=== PATIENT | female | born 1955 | race Caucasian/White ===

== ENCOUNTER → 2017-05-04 | Day surgery (SDC) | payer OTHER ==
[2017-03-28 11:09] VITALS: Ht 157.5 cm; Wt 81.8 kg
[~2017-05-04] VITALS: Ht 157.5 cm; Wt 81.8 kg
[~2017-05-04] MED LIST: AMIT25TA9 PO; BIOTCAP2 PO; BUDE32SU3 NAE; CHOL1TAB42 PO; GABA-1220 PO; IOPAMIDOL INJ 61% 15 ML VIAL ONE; LIDOCAINE HCL 1% MPF 5 ML VIAL ONE; NATURE THYROID PO; SODIUM CHLORIDE 0.9% INJ 10 ML VIAL ONE; ZOLP10TA PO
--- NOTE | 2017-05-04 15:14 | History & Physical Bridge - [place] ---
H&P Re-Evaluation Bridge Note: I have examined the patient, reviewed the History & Physical and in the interval since the performance of the History & Physical I have noted the following changes of clinical significance: No changes noted
--- NOTE | 2017-05-04 15:33 | [facility] Post Operative Brief Note ---
Immediate Operative Summary Operative Date May 04, 2017. Pre-Operative Diagnosis L4-5 STENOSIS WITH A LEFT L5 RADICULOPATHY Post-Operative Diagnosis L4-5 STENOSIS WITH A LEFT L5 RADICULOPATHY Procedure(s) Performed LUMBAR EPIDURAL STEROID INJECTION Surgeon DR. Gadiel SPAULDING [employer] Superintendent Surgeon(s) None Estimated Blood Loss NONE Findings Consistent with Post-Op Diagnosis Specimens NA Drains None Anesthesia Type Local Complication(s) none Disposition Disposition:
--- NOTE | 2017-05-04 15:34 | Discharge Instructions ---
Discharge Instructions Date of Service May 04, 2017. Visit Reason for Visit: Lumbar Radiculopathy Discharge Discharge Diagnosis / Problem: left leg pain Discharge Goals Goal(s): Decrease discomfort, Improve function Activity Recommendations Activity Limitations: resume your previous activity Anesthesia . Post Anesthesia Instructions: If you have had General Anesthesia or IV Sedation: * Do not drive today. * Resume driving when surgeon permits. * Do not make important decisions or sign legal documents today. * Call surgeon for: 1. Temperature elevations greater than 101 degrees F. 2. Uncontrollable pain. 3. Excessive bleeding. 4. Persistent nausea and vomiting. 5. Medication intolerance (nausea, vomiting or rash). * For nausea and vomiting use only clear liquids such as: tea, soda, bouillon until nausea subsides, then gradually increase diet as tolerated. * If you have any concerns or questions, call your surgeon's office. If physician is unavailable and it is an emergency, call 911 or go to the nearest emergency room. . Diet Recommendations Recommended Home Diet: resume previous diet Procedures Procedures Performed: LUMBAR EPIDURAL STEROID INJECTION Pending Studies Studies pending at discharge: no Medical Emergencies . Who to Call and When: Medical Emergencies: If at any time you feel your situation is an emergency, please call 911 immediately. . Non-Emergent Contact Non-Emergency issues call your: Specialist . . "Provider Documentation" section prepared by Adolfo Knowles. .
[2017-05-04 15:35] VITALS: TEMP 36.4
[2017-05-04 15:58] VITALS: BP 122/84; PULSE 71; O2SAT 98
--- NOTE | 2017-05-04 18:14 | OPERATIVE REPORT ---
DATE OF OPERATION: 05/04/2017 PREOPERATIVE DIAGNOSIS: L4-L5 stenosis with a left L5 radiculopathy. POSTOPERATIVE DIAGNOSIS: Same. PROCEDURE: Left paramedian L5-S1 intralaminar epidural steroid injection under fluoroscopic guidance. INDICATIONS: The patient is a 61-year-old white female who has a 15-year history of recurrent low back pain. She is describing classic radicular symptoms down the left leg following an L5 dermatomal distribution with imaging studies showing multifactorial foraminal stenosis at L4-L5. PHYSICAL EXAMINATION: Pleasant female seated comfortably. She has some mild sciatic notch sensitivity, mild reproduction of pain with forward flexion, no problems with extension. She has negative seated straight leg raises and intact sensation distally. CONSENT: Verbal and written consent was obtained from the patient. Risks and benefits were reviewed. Risks include but are not limited to epidural abscess, epidural hematoma, allergic reaction, dural puncture. The patient wishes to proceed. DESCRIPTION OF PROCEDURE: The patient was taken back to the special procedures room of [facility]. She was maintained in a prone position. Backside was cleansed with Betadine x3 and a dry sterile dressing was applied. Fluoroscope was used to identify the L5-S1 intralaminar space. Overlying skin was anesthetized with 4 mL of lidocaine 1% with a 25 gauge 1.5-inch needle on the left side. A 22-gauge 3-1/2 inch Tuohy needle was then directed down towards the intralaminar space. It was advanced under lateral fluoroscopic guidance and loss of resistance was noted at a depth of 6.5 cm. Isovue 300 contrast 0.5 mL was injected in which demonstrated epidural uptake pattern, which was confirmed with lateral view. She then underwent injection after negative aspiration of 40 mg of Depo-Medrol and 4 mL of preservative free sodium chloride. Injection was well tolerated and reproduced a familiar transient radicular sensation down the left leg. DISPOSITION: 1. The patient is taken out into the discharge recovery area where she will be discharged home once discharge criteria have been met. 2. Follow up in the [facility] office in 4 weeks' time. I attest to the content of the Intraoperative Record and any orders documented therein. Any exception s are noted below.
== END | disposition home or self-care (01) ==
LOC: X.SURG 14:20
PROVIDERS: ATTEND Physical Medicine & Rehabilitation
DX: M48.061 Spinal stenosis, lumbar region without neurogenic claudication (principal); M54.16 Radiculopathy, lumbar region; E07.9 Disorder of thyroid, unspecified; Z88.5 Allergy status to narcotic agent; Z82.3 Family history of stroke; Z83.3 Family history of diabetes mellitus